=== PATIENT | female | born 1965 | race Caucasian/White ===

== ENCOUNTER 2020-12-09 09:57 | Inpatient (IN) | payer OTHER, MEDICAID ==
[~2020-12-09] VITALS: Ht 165.1 cm; Wt 72.6 kg
[2020-12-09] MEDS ORDERED: HALOPERIDOL 5 MG TABLET PO PRN (10:30)
[2020-12-09] MEDS ORDERED: ZOLPIDEM TARTRATE 10 MG TABLET PO PRN (10:30)
[2020-12-09] MEDS ORDERED: LORazepam 2 MG TABLET PO PRN (10:30)
[2020-12-09 16:18] VITALS: BP 132/83
[2020-12-09] MEDS: OLANZapine 10 MG TABLET PO SCH (17:00)
[2020-12-10 03:20] VITALS: BP 126/76
[2020-12-10] MEDS ORDERED: MAG HYDROX/AL HYDROX/SIMETH ES 30 ML SUSPENSION UDCUP PO PRN (08:15)
[2020-12-10] MEDS ORDERED: PETROLATUM,WHITE 28 GM JELLY TP PRN (08:15)
[2020-12-10] MEDS ORDERED: ALBUTEROL SULFATE HFA 90 MCG/PUFF 8 GM INHALER IH PRN (08:15)
[2020-12-10] MEDS ORDERED: MAGNESIUM HYDROXIDE SUSPENSION 30 ML UDCUP PO PRN (08:15)
[2020-12-10] MEDS ORDERED: GuaiFENesin/D-METHORPHAN [SUGAR-FREE] 200-20MG/10 ML SYRUP UDCUP PO PRN (08:15)
[2020-12-10] MEDS ORDERED: LOPERAMIDE HCL 2 MG CAPSULE PO PRN (08:15)
[2020-12-10] MEDS ORDERED: ACETAMINOPHEN 325 MG TABLET PO PRN (08:15)
[2020-12-10] MEDS ORDERED: IBUPROFEN 400 MG TABLET PO PRN (08:15)
[2020-12-10] MEDS ORDERED: CloNIDine HCL 0.1 MG TABLET PO PRN (08:15)
[2020-12-10] MEDS ORDERED: NICOTINE 14 MG/24 HOUR PATCH TD PRN (08:15)
[2020-12-10] MEDS ORDERED: ONDANSETRON HCL 4 MG TABLET PO PRN (08:15)
[2020-12-10 08:40] VITALS: BP 114/77
[2020-12-10] MEDS: BuPROPion HCL XL 150 MG ER TABLET PO SCH (08:50)
[2020-12-10] MEDS: OLANZapine 10 MG TABLET PO SCH ×2 (08:50→17:16)
[2020-12-10 16:22] VITALS: BP 114/66
[2020-12-10] MEDS: DOCUSATE SODIUM 100 MG CAPSULE PO PRN (17:16)
[2020-12-11 01:19] VITALS: BP 108/63
[2020-12-11 08:16] VITALS: BP 125/80
[2020-12-11] MEDS: OLANZapine 10 MG TABLET PO SCH ×2 (10:02→16:19)
[2020-12-11] MEDS: BuPROPion HCL XL 150 MG ER TABLET PO SCH (10:02)
[2020-12-11 16:22] VITALS: BP 102/61
[2020-12-12 04:36] VITALS: BP 103/62
[2020-12-12] MEDS: BuPROPion HCL XL 150 MG ER TABLET PO SCH (07:57)
[2020-12-12] MEDS: OLANZapine 10 MG TABLET PO SCH ×2 (07:57→16:20)
[2020-12-12 08:37] LABS: HEMOGLOBIN A1C 5.5 % (3.8-5.6)
[2020-12-12 08:55] VITALS: BP 110/65
[2020-12-12 10:27] LABS: CHOL/HDL RATIO 3.7 (3.9-5.7); FREE T4 (FREE THYROXINE) 0.95 ng/dL (0.76-1.46)
[2020-12-12 16:47] VITALS: BP 120/74
[2020-12-13 01:54] VITALS: BP 114/68
[2020-12-13 08:48] VITALS: BP 119/63
[2020-12-13] MEDS: BuPROPion HCL XL 150 MG ER TABLET PO SCH (08:58)
[2020-12-13] MEDS: OLANZapine 10 MG TABLET PO SCH ×2 (08:58→16:33)
[2020-12-13 16:23] VITALS: BP 118/75
[2020-12-13] MEDS: DOCUSATE SODIUM 100 MG CAPSULE PO PRN (16:34)
[2020-12-14 02:24] VITALS: BP 114/72
[2020-12-14] MEDS: OLANZapine 10 MG TABLET PO SCH (08:16)
[2020-12-14] MEDS: BuPROPion HCL XL 150 MG ER TABLET PO SCH (08:16)
[2020-12-14 08:29] VITALS: BP 140/69
[2020-12-14] MEDS ORDERED: OLAN10TA74 PO (12:00)
[2020-12-14] MEDS ORDERED: BUPR-93 PO (12:00)
== END 2020-12-14 13:25 | disposition home or self-care (01) | DRG 885 ==
LOC: B3A 11:50
PROVIDERS: ADMIT Psychiatry & Neurology Psychiatry; ATTEND Psychiatry & Neurology Psychiatry
DX: F31.9 Bipolar disorder, unspecified (principal); E44.0 Moderate protein-calorie malnutrition; G93.40 Encephalopathy, unspecified; R00.0 Tachycardia, unspecified; Z68.26 Body mass index [BMI] 26.0-26.9, adult
CPT/HCPCS: 80061; 83036; 84436; 84439; 84702